=== PATIENT | male | born 1980 | race Caucasian/White ===

== ENCOUNTER 2024-09-11 08:39 | Emergency (ER) | payer OTHER, SELFPAY ==
--- NOTE | ~2024-09-11 | XR_ITS ---
EXAMINATION: XR chest 2V DATE: 09/11/2024 09:26 INDICATION: Cough and shortness of breath. TECHNIQUE: Frontal and lateral views of the chest were obtained. COMPARISON: None. 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 There is no pneumonia, pleural effusion, or pneumothorax. The heart size is nor mal. IMPRESSION: 1. No acute cardiopulmonary disease. Reviewed, dictated and finalized at location [] [facility]
--- NOTE | 2024-09-11 08:48 | ED_ITS ---
HPI - URI/Sore Throat General Chief Complaint: Upper Respiratory Infection Stated Complaint: COUGH Time Seen by Provider: 09/11/24 08:53 Source: patient Mode of arrival: ambulatory Limitations: no limitations History of Present Illness HPI Narrative: Dayne is a 44-year-old male patient presenting to the clinic today with complaints of cough, shortness of breath, sinus congestion, and sinus pressure x3 weeks. He reports he is coughing up some yellow phlegm at times as well as blowing out yellow nasal drainage. Has felt feverish but has not checked his temperature. Over the last 2 nights he has not been able to sleep due to the cough. Denies any chest pain. MD elicited complaint: fever, cough, rhinorrhea, nasal congestion and sinus pain Related Data Allergies Allergy/AdvReac Type Severity Reaction Status Date / Time No Known Allergies Allergy Verified 09/11/24 08:57 Review of Systems Review of Systems: Pertinent positives per HPI. Patient denies any rash, headache, visual changes, dizziness, chest pain, palpitations, nausea, vomiting, diarrhea, constipation, abdominal pain, or any urinary issues. PMFSH Comments At the time of my signature, I reviewed and agree with the nursing past medical, surgical, social, and family history. There is no relevant family history pertinent to the patient complaint. Exam Narrative: General: Well-developed, well nourished, in no apparent distress Head: Normocephalic, atraumatic Eyes: Pupils equally round and reactive to light bilaterally, EOM intact, sclera and conjunctive clear, no discharge, lids normal Ears: TMs intact and congested, ear canals clear, no drainage, grossly hearing normal. Nose: Nares patent, yellow nasal discharge, moderate inflammation, maxillary and frontal sinus tenderness. Mouth: Oral pharynx without lesions or masses, good dentition, MMM. Postnasal drip Neck: Supple, trachea midline, no enlargement of anterior or posterior cervical nodes, no thyroid masses or goiter palpable. Cardio: Regular rate and rhythm, s1 and s2 normal, no murmur appreciated. Resp: Lung sounds diminished in the bases otherwise clear, no rhonchi, rales, wheezing or rubs Course Course Emergency Course: Portions of this record may have been created with voice recognition software. Level of Care: Express Care Visit Vital Signs Vital signs: Vital Signs Temperature 36.9 C 09/11/24 08:55 Pulse Rate 112 H 09/11/24 08:55 Respiratory Rate 18 09/11/24 08:55 Blood Pressure 131/99 H 09/11/24 08:55 Pulse Oximetry 98 09/11/24 08:55 Oxygen Delivery Room Air 09/11/24 08:55 Temperature 36.9 C 09/11/24 08:55 Pulse Rate 112 H 09/11/24 08:55 Respiratory Rate 18 09/11/24 08:55 Blood Pressure 131/99 H 09/11/24 08:55 Pulse Oximetry 98 09/11/24 08:55 Oxygen Delivery Room Air 09/11/24 08:55 Vital signs reviewed MDM - URI/Sore Throat MDM Narrative Medical decision making narrative: At the time of visit patient is resting comfortably on the exam table. Patient appears to be nontoxic. Diagnostics: Chest x-ray shows no acute cardiopulmonary process. Plan: I suspect patient has sinusitis/bronchitis. Prescription for Augmentin, prednisone, albuterol inhaler, and Tessalon Perles was sent to the pharmacy. Supportive measures were discussed with the patient and they voiced understanding discharge instructions and agrees to treatment plan. Return precautions reviewed Differential Diagnosis Differential diagnosis: Likely upper respiratory infection, otitis media, sinusitis, viral infection, bronchitis, influenza, pharyngitis and other (COVID) Discharge Plan Discharge Clinical Impression: Sinobronchitis Patient Disposition: Home, Self-Care Condition: Stable Instructions: Antibiotic Form, Acute Bronchitis (ED), Rhinosinusitis (ED) Additional Instructions: Chest x-rays negative for any acute cardiopulmonary process. Take prescription medications only as prescribed-prednisone, Augmentin, Tessalon Perles, and albuterol inhaler Increase fluids and stay well hydrated Tylenol/motrin for pain/fever Flonase and OTC antihistamines as directed Vicks vapor rub to open sinuses Sinus rinses for congestion Cepacol spray, cough drops, throat lozenges, warm tea with honey/lemon, gargle salt water to soothe throat BRAT diet for diarrhea Clear liquids x 24 hours then advance as tolerated for nausea/vomiting Go to the ED if you develop a worsening in your condition- high fever not controlled by Tylenol or Motrin, dehydration, weakness, lethargy, shortness of breath, or chest pain. Follow up with your PCP in 3-5 days if symptoms persist. Patient Language: Citizen Of [place] Prescriptions: New benzonatate 200 mg capsule 200 mg PO TID 7 Days Qty: 21 0RF prednisone 20 mg tablet 40 mg PO DAILY 5 Days Qty: 10 0RF albuterol sulfate 90 mcg/actuation HFA aerosol inhaler 2 puff inhalation Q4-6H PRN (Reason: shortness of breath or wheezing) 30 Days Qty: 8.5 0RF amoxicillin-pot clavulanate 875-125 mg tablet 1 tablet PO Q12H 10 Days Qty: 20 0RF Follow-up/Referrals: Rohan Adams DO [Primary Care Provider] - Time of Disposition: 09:36 Quality NIHSS Nursing Documentation ED NIHSS nursing documentation: reviewed/agree
[2024-09-11 08:55] VITALS: BP 131/99; PULSE 112; RESP 18; TEMP 36.9; O2SAT 98
== END 2024-09-11 09:40 | disposition home or self-care (01) ==
PROVIDERS: Emergency Provider Nurse Practitioner Family; PCP Surgery
DX: J40 Bronchitis, not specified as acute or chronic (principal); J32.9 Chronic sinusitis, unspecified
CPT/HCPCS: 71046; 99203; G0463